=== PATIENT | female | born 2000 | race African-American/Black ===

== ENCOUNTER 2023-01-05 23:19 | Emergency (ER) | payer OTHER ==
[~2023-01-05] VITALS: Ht 162.6 cm; Wt 70.0 kg
[2023-01-05 23:25] VITALS: O2SAT 98
[2023-01-05] MEDS ORDERED: KETOROLAC 60MG/2ML VIAL IM ONE (23:45)
[2023-01-06] MEDS ORDERED: CYCL10TA21 MT (01:43)
[2023-01-06] MEDS ORDERED: IBUP-2029 MT (01:43)
[2023-01-06 02:18] VITALS: BP 110/68; PULSE 60; RESP 18; TEMP 98.2
== END 2023-01-06 02:20 | disposition home or self-care (01) ==
LOC: ER 23:19
DX: S30.0XXA Contusion of lower back and pelvis, initial encounter (principal); V03.99XA Pedestrian with other conveyance injured in collision with car, pick-up truck or van, unspecified whether traffic or nontraffic accident, initial encounter; Y93.89 Activity, other specified; Y92.89 Other specified places as the place of occurrence of the external cause; Y99.8 Other external cause status
CPT/HCPCS: 99283; 96372; J1885